=== PATIENT | female | born 1975 | race African-American/Black ===

== ENCOUNTER 2016-10-01 07:35 | Emergency (ER) | payer OTHER ==
[~2016-10-01] VITALS: Ht 162.6 cm; Wt 60.0 kg
[2016-10-01 07:46] VITALS: BP 149/87
== END 2016-10-01 08:57 | disposition home or self-care (01) ==
LOC: ER 07:35
DX: G56.01 Carpal tunnel syndrome, right upper limb (principal); Z88.8 Allergy status to other drugs, medicaments and biological substances
CPT/HCPCS: 29125; 99283

== ENCOUNTER 2016-11-06 11:06 | Emergency (ER) | payer OTHER | END 2016-11-06 12:17 | disposition left against medical advice (07) | LOC: ER 12:16 | DX: R10.9 Unspecified abdominal pain (principal); Z53.21 Procedure and treatment not carried out due to patient leaving prior to being seen by health care provider ==

== ENCOUNTER 2016-11-07 07:28 | Emergency (ER) | payer OTHER ==
[~2016-11-07] VITALS: Ht 167.6 cm; Wt 59.0 kg
[2016-11-07 07:37] VITALS: BP 168/97
[2016-11-07 09:38] LABS: CLARITY URINE CLEAR (CLEAR); COLOR URINE YELLOW (YELLOW); GLUCOSE URINE NEGATIVE (NEGATIVE); KETONES URINE NEGATIVE (NEGATIVE); LEUKOCYTE ESTERASE URINE NEGATIVE (NEGATIVE); NITRITE URINE NEGATIVE (NEGATIVE); OCCULT BLOOD URINE NEGATIVE (NEGATIVE); PH URINE 5.5 (4.5-8.0); PROTEIN URINE NEGATIVE (NEGATIVE); SPECIFIC GRAVITY URINE 1.014 (1.005-1.030); UROBILINOGEN URINE 0.2 E.U./dL (0.2-1.0)
== END 2016-11-08 06:48 | disposition home or self-care (01) ==
LOC: ER 10:24
DX: R10.9 Unspecified abdominal pain (principal); M54.5 Low back pain; Z88.8 Allergy status to other drugs, medicaments and biological substances
CPT/HCPCS: 81003; 99283

== ENCOUNTER 2017-02-12 08:55 | Emergency (ER) | payer OTHER ==
[~2017-02-12] VITALS: Ht 162.6 cm; Wt 63.0 kg
[2017-02-12] MEDS ORDERED: KETOROLAC 60MG/2ML VIAL IM ONE (10:15)
[2017-02-12 10:36] VITALS: BP 158/102
== END 2017-02-12 11:20 | disposition home or self-care (01) ==
LOC: ER 11:18
DX: M54.5 Low back pain (principal); I10 Essential (primary) hypertension
CPT/HCPCS: 81025; 96372; 99283; J1885

== ENCOUNTER 2017-02-23 09:07 | Emergency (ER) | payer OTHER ==
[~2017-02-23] VITALS: Ht 162.6 cm; Wt 64.0 kg
[2017-02-23] MEDS ORDERED: KETOROLAC 60MG/2ML VIAL IM ONE (11:00)
[2017-02-23 12:28] VITALS: BP 145/80
== END 2017-02-23 13:10 | disposition home or self-care (01) ==
LOC: ER 10:16
DX: M62.830 Muscle spasm of back (principal); I10 Essential (primary) hypertension
CPT/HCPCS: 81025; 96372; 99283; J1885

== ENCOUNTER 2017-10-21 07:38 | Emergency (ER) | payer MEDICAID, OTHER ==
[~2017-10-21] VITALS: Ht 162.6 cm; Wt 65.0 kg
[2017-10-21] MEDS ORDERED: ACETAMINOPHEN 325MG TABLET PO ONE (09:00)
[2017-10-21 09:19] VITALS: BP 186/99
== END 2017-10-21 09:21 | disposition home or self-care (01) ==
LOC: ER 08:07
DX: G56.02 Carpal tunnel syndrome, left upper limb (principal); I10 Essential (primary) hypertension; F19.10 Other psychoactive substance abuse, uncomplicated
CPT/HCPCS: 29260; 81025; 99283

== ENCOUNTER 2017-11-28 14:13 | Inpatient (IN) | payer SELFPAY ==
[~2017-11-28] VITALS: Ht 162.6 cm; Wt 63.5 kg
[2017-11-28 17:04] LABS: BASOPHILS % 0.8 % (0.0-2.0); EOSINOPHILS % 2.7 % (0.0-5.0); HEMATOCRIT. 35.6 % (36.0-48.0); HEMOGLOBIN. 11.5 g/dL (12.0-16.0); LYMPHOCYTES % 35.8 % (20.0-50.0); MEAN CORPUSCULAR HEMOGLOBIN 25.6 pg (28.0-32.0); MEAN CORPUSCULAR VOLUME 79.3 fL (81.0-99.0); MEAN PLATELET VOLUME 7.6 fl (7.4-10.4); NEUTROPHILS % 52.7 % (40.0-76.0); PLATELET 318 x1000/uL (130-400); RED BLOOD CELL COUNT 4.49 mill/uL (4.2-5.4); RED CELL DISTRIBUTION WIDTH 17.2 % (11.6-14.6)
[2017-11-28 17:10] LABS: CHLORIDE 107 mEq/L (98-107)
[2017-11-28 17:12] LABS: INR 1.1; PARTIAL THROMBOPLASTIN TIME 25.3 sec (23.4-31.0); PROTHROMBIN TIME 11.3 sec (9.4-11.6)
[2017-11-28 17:18] LABS: HCG SCREEN NEGATIVE
[2017-11-28] MEDS ORDERED: ASPIRIN 81MG TABLET PO STA (20:08)
[2017-11-28] MEDS ORDERED: CEFTRIAXONE SODIUM 250 MG/VIAL IM ONE (20:15)
[2017-11-28] MEDS ORDERED: AZITHROMYCIN 500 MG TABLET PO ONE (20:15)
[2017-11-28] MEDS ORDERED: LIDOCAINE HCL 1% 20ML VIAL (Pyxis) INJ INFIL ONE (20:15)
[2017-11-28] MEDS ORDERED: NITROGLYCERIN 0.4MG TABLET SL SL PRN (20:30)
[2017-11-28] MEDS ORDERED: LIDOCAINE HCL/PF 1% 10 MG/ML 5ML VIAL IJ NR (21:15)
[2017-11-28] MEDS ORDERED: AMLODIPINE 5MG TABLET PO ONE (22:30)
[2017-11-29] VITALS (7 sets, daily range): BP systolic 128–163; BP diastolic 80–105
[2017-11-29] MEDS ORDERED: HYDR12.54 PO (02:14)
[2017-11-29] MEDS ORDERED: ONDANSETRON HCL 4MG/2ML VIAL IV PRN (15:15)
[2017-11-29] MEDS ORDERED: HYDROCODONE/ACETAMINOPHEN 5/325MG TABLET PO PRN (15:15)
[2017-11-29] MEDS ORDERED: ACETAMINOPHEN 325MG TABLET PO PRN (15:15)
[2017-11-29] MEDS ORDERED: FLUCONAZOLE 150MG TABLET PO SCH (16:00)
[2017-11-29 23:10] LABS: CREATINE KINASE 101 IU/L (26-192)
[2017-11-29 23:11] LABS: CREATINE KINASE MB FRACTION < 0.5 ng/mL (0.5-3.6)
[2017-11-30] VITALS: BP 127/86
[2017-11-30 04:00] VITALS: BP 124/93
[2017-11-30 07:22] LABS: BASOPHILS % 0.6 % (0.0-2.0); EOSINOPHILS % 1.9 % (0.0-5.0); HEMATOCRIT. 36.7 % (36.0-48.0); HEMOGLOBIN. 11.7 g/dL (12.0-16.0); LYMPHOCYTES % 19.5 % (20.0-50.0); MEAN CORPUSCULAR HEMOGLOBIN 25.2 pg (28.0-32.0); MEAN PLATELET VOLUME 7.8 fl (7.4-10.4); MONOCYTES % 5.6 % (2.0-8.0); NEUTROPHILS % 72.4 % (40.0-76.0); PLATELET 333 x1000/uL (130-400); RED BLOOD CELL COUNT 4.65 mill/uL (4.2-5.4); RED CELL DISTRIBUTION WIDTH 17.2 % (11.6-14.6)
[2017-11-30 07:48] LABS: CHLORIDE 106 mEq/L (98-107)
[2017-11-30 08:08] LABS: CREATINE KINASE 95 IU/L (26-192); CREATINE KINASE MB FRACTION < 0.5 ng/mL (0.5-3.6)
[2017-11-30 08:09] LABS: T4 FREE 1.06 ng/dL (0.76-1.46)
[2017-11-30 08:55] VITALS: BP 124/88
[2017-11-30] MEDS: HYDROCHLOROTHIAZIDE 12.5MG CAPSULE PO SCH ×2 (09:04→09:05)
[2017-11-30] MEDS ORDERED: AMLODIPINE 5MG TABLET PO SCH (11:00)
[2017-11-30 12:22] VITALS: BP 141/93
[2017-11-30] MEDS ORDERED: AMLO5TAB88 PO (15:36)
[2017-11-30 15:55] VITALS: BP 141/93
[2017-11-30 16:20] VITALS: BP 129/83
[2017-12-01 14:19] LABS: CHLAMYDIA TRACHOMATIS NAA Negative (Negative); NEISSERIA GONORRHOEAE NAA Negative (Negative)
== END 2017-11-30 16:35 | disposition home or self-care (01) | DRG 203 ==
LOC: ER 14:13 → 6WST 22:18 → EDBEDREQ 22:21 → EDBEDREQTM 22:21
PROVIDERS: ADMIT Internal Medicine; ATTEND Internal Medicine
DX: R07.89 Other chest pain (principal); E87.8 Other disorders of electrolyte and fluid balance, not elsewhere classified; I10 Essential (primary) hypertension; N89.8 Other specified noninflammatory disorders of vagina; Z79.899 Other long term (current) drug therapy; Z88.8 Allergy status to other drugs, medicaments and biological substances
CPT/HCPCS: 36415; 71045; 80053; 82550; 82553; 83690; 83880; 84439; 84443; 84481; 84484; 84703; 85025; 85610; 85730; 87070; 87210; 87491; 87591; 93005; 93971; J0696; J3490

== ENCOUNTER 2018-09-10 11:06 | Emergency (ER) | payer MEDICAID, OTHER ==
[~2018-09-10] VITALS: Ht 162.6 cm; Wt 64.0 kg
[~2018-09-10 11:06] MED LIST: AMLO5TAB88 PO
[2018-09-10] MEDS ORDERED: IBUPROFEN 600MG TABLET PO ONE (12:30)
[2018-09-10 12:45] VITALS: BP 172/91
[2018-09-10 12:49] LABS: CLARITY URINE CLEAR (CLEAR); COLOR URINE YELLOW (YELLOW); KETONES URINE NEGATIVE (NEGATIVE); LEUKOCYTE ESTERASE URINE NEGATIVE (NEGATIVE); NITRITE URINE NEGATIVE (NEGATIVE); OCCULT BLOOD URINE NEGATIVE (NEGATIVE); PROTEIN URINE NEGATIVE (NEGATIVE); SPECIFIC GRAVITY URINE 1.006 (1.005-1.030); UROBILINOGEN URINE 0.2 E.U./dL (0.2-1.0)
[2018-09-10] MEDS ORDERED: FLUCONAZOLE 100MG TABLET PO ONE (15:45)
== END 2018-09-10 16:07 | disposition home or self-care (01) ==
LOC: ER 11:06
DX: S63.613A Unspecified sprain of left middle finger, initial encounter (principal); S63.611A Unspecified sprain of left index finger, initial encounter; B37.3 Candidiasis of vulva and vagina; R05 Cough; I10 Essential (primary) hypertension; R09.89 Other specified symptoms and signs involving the circulatory and respiratory systems; Z88.8 Allergy status to other drugs, medicaments and biological substances; Z79.899 Other long term (current) drug therapy; Z98.890 Other specified postprocedural states; X58.XXXA Exposure to other specified factors, initial encounter; Y93.89 Activity, other specified; Y92.89 Other specified places as the place of occurrence of the external cause; Y99.8 Other external cause status
CPT/HCPCS: 71045; 73140; 81025; 99284

== ENCOUNTER 2022-05-20 21:47 | Emergency (ER) | payer MEDICAID, OTHER ==
[~2022-05-20] VITALS: Ht 162.6 cm; Wt 50.0 kg
[2022-05-20 22:23] VITALS: BP 157/97
== END 2022-05-21 03:21 | disposition left against medical advice (07) ==
LOC: ER 21:47
DX: Z53.21 Procedure and treatment not carried out due to patient leaving prior to being seen by health care provider (principal); I10 Essential (primary) hypertension; Z94.5 Skin transplant status; Z88.8 Allergy status to other drugs, medicaments and biological substances